=== PATIENT | female | born 1975 | race Caucasian/White ===

== ENCOUNTER → 2016-08-11 | Outpatient (REF) | payer BC | LOC: M LAB REF 12:34 | PROVIDERS: ATTEND Internal Medicine | DX: R20.1 Hypoesthesia of skin (principal) ==

== ENCOUNTER 2016-09-08 08:03 | Outpatient (CLI) | payer BC ==
[~2016-09-08] VITALS: Ht 160 cm; Wt 51.4 kg
[2016-09-08] MEDS ORDERED: methylPREDNISolone 1,000 MG, VIAL MATE ADAPTER 1 EACH in D5W 250 ML IV ONE (08:15)
[2016-09-08] MEDS ORDERED: PROBCAP4 PO (11:21)
== END 2016-09-08 10:50 | disposition home or self-care (01) ==
LOC: M INFU 08:03
PROVIDERS: ATTEND Psychiatry & Neurology Neurology
DX: H46.9 Unspecified optic neuritis (principal)
CPT/HCPCS: 96365; 96366; J2930

== ENCOUNTER 2016-09-09 06:54 | Outpatient (CLI) | payer BC ==
[~2016-09-09] VITALS: Ht 160 cm; Wt 51.4 kg
[~2016-09-09 06:54] MED LIST: PROBCAP4 PO; methylPREDNISolone 1,000 MG, VIAL MATE ADAPTER 1 EACH in D5W 250 ML IV ONE
== END 2016-09-09 08:35 | disposition home or self-care (01) ==
LOC: M INFU 06:54
PROVIDERS: ATTEND Psychiatry & Neurology Neurology
DX: H46.9 Unspecified optic neuritis (principal); M62.81 Muscle weakness (generalized); Z88.2 Allergy status to sulfonamides; Z79.899 Other long term (current) drug therapy
CPT/HCPCS: 96365; J2930

== ENCOUNTER 2016-09-10 07:09 | Outpatient (CLI) | payer BC ==
[~2016-09-10 07:09] MED LIST changes: -methylPREDNISolone 1,000 MG, VIAL MATE ADAPTER 1 EACH in D5W 250 ML IV ONE
[2016-09-10] MEDS ORDERED: methylPREDNISolone 1,000 MG, VIAL MATE ADAPTER 1 EACH in D5W 250 ML IV ONE (08:00)
== END 2016-09-10 08:30 | disposition home or self-care (01) ==
LOC: M INFU 07:09
PROVIDERS: ATTEND Psychiatry & Neurology Neurology
DX: H46.9 Unspecified optic neuritis (principal); M62.81 Muscle weakness (generalized); Z88.2 Allergy status to sulfonamides; Z79.899 Other long term (current) drug therapy
CPT/HCPCS: 96365; J2930

== ENCOUNTER 2016-09-11 07:02 | Outpatient (CLI) | payer BC ==
[~2016-09-11] VITALS: Ht 160 cm; Wt 51.4 kg
[~2016-09-11 07:02] MED LIST changes: +methylPREDNISolone 1,000 MG, VIAL MATE ADAPTER 1 EACH in D5W 250 ML IV ONE
== END 2016-09-11 08:25 | disposition home or self-care (01) ==
LOC: M INFU 07:02
PROVIDERS: ATTEND Psychiatry & Neurology Neurology
DX: H46.9 Unspecified optic neuritis (principal); M62.81 Muscle weakness (generalized); Z88.2 Allergy status to sulfonamides; Z79.899 Other long term (current) drug therapy
CPT/HCPCS: 96365; J2930

== ENCOUNTER 2016-09-12 06:58 | Outpatient (CLI) | payer BC ==
[~2016-09-12] VITALS: Ht 160 cm; Wt 51.4 kg
[~2016-09-12 06:58] MED LIST changes: -methylPREDNISolone 1,000 MG, VIAL MATE ADAPTER 1 EACH in D5W 250 ML IV ONE
[2016-09-12] MEDS ORDERED: methylPREDNISolone 1,000 MG, VIAL MATE ADAPTER 1 EACH in D5W 250 ML IV ONE (07:15)
== END 2016-09-12 08:25 | disposition home or self-care (01) ==
LOC: M INFU 06:58
PROVIDERS: ATTEND Psychiatry & Neurology Neurology
DX: H46.9 Unspecified optic neuritis (principal); M62.81 Muscle weakness (generalized); Z88.2 Allergy status to sulfonamides; Z79.899 Other long term (current) drug therapy
CPT/HCPCS: 96365; J2930

== ENCOUNTER → 2017-08-17 | Outpatient (REF) | payer BC | LOC: M LAB REF 12:38 | DX: N39.0 Urinary tract infection, site not specified (principal); N76.0 Acute vaginitis | CPT/HCPCS: 87186 ==

== ENCOUNTER → 2018-09-08 | Outpatient (REF) | payer BC ==
[2018-09-08 17:28] LABS: FOLLICLE STIMULATING HORMONE 7.3 mIU/mL; LUTEINIZING HORMONE 5.6 mIU/mL
== END ==
LOC: M LAB REF 16:33
PROVIDERS: ATTEND Internal Medicine
DX: N92.6 Irregular menstruation, unspecified (principal)

== ENCOUNTER → 2018-10-26 | Outpatient (CLI) | payer BC ==
[2018-10-26 10:13] LABS: BASO % 0.8 % (0.0-1.0); EOS # 0.1 10^3/uL (0.0-0.50); EOS % 2.3 % (0.0-3.0); HEMATOCRIT 37.9 % (36.0-47.0); HEMOGLOBIN 12.9 g/dl (12.0-15.5); LYMPH # 1.2 10^3/uL (1.5-4.5); LYMPH % 30.4 % (24.0-44.0); MEAN CORPUSCULAR HEMOGLOBIN 33.7 pg (27.0-33.0); MONO # 0.3 10^3/uL (0.0-0.8); MONO % 8.3 % (0.0-5.0); NEUTROPHILS # 2.2 10^3/uL (1.8-7.7); NEUTROPHILS % 58.2 % (36.0-66.0); PLATELET COUNT, AUTOMATED 166 10^3/uL (150-450); RED BLOOD COUNT 3.83 10^6/uL (4.00-5.40); WHITE BLOOD COUNT 3.9 10^3/uL (4.0-10.0)
[2018-10-26 10:20] LABS: INR 1.04; PROTHROMBIN TIME 13.3 SECONDS (11.8-14.0)
[2018-10-26 10:21] LABS: PARTIAL THROMBOPLASTIN TIME 25.1 SECONDS (25.0-38.4)
[2018-10-26 10:25] LABS: BLOOD UREA NITROGEN 11 MG/DL (7-18); CALCIUM LEVEL 8.8 MG/DL (8.5-10.1); CARBON DIOXIDE LEVEL 27 MEQ/L (21-32); CHLORIDE LEVEL 109 MEQ/L (98-107); CHOLESTEROL LEVEL 159 MG/DL (<200); CHOLESTEROL RISK RATIO 1.962 (<5); CREATININE FOR GFR 0.82 MG/DL (0.55-1.30); FOLLICLE STIMULATING HORMONE 3.8 mIU/mL; GLOMERULAR FILTRATION RATE > 60.0 (>58); GLUCOSE, FASTING 84 MG/DL (70-100); HCG, SERUM QUANTITATIVE < 1.0 MIU/ML; HDL CHOLESTEROL 81 MG/DL (>40); LDL CHOLESTEROL 66 MG/DL (<100); LUTEINIZING HORMONE 6.1 mIU/mL; NON-HDL-C 78 MG/DL; POTASSIUM SERUM 3.9 MEQ/L (3.5-5.1); PROLACTIN 28.3 NG/ML; SODIUM LEVEL 141 MEQ/L (136-145); TRIGLYCERIDES LEVEL 61 MG/DL (<150); URIC ACID 3.9 MG/DL (2.6-6.0)
[2018-10-26 10:49] LABS: HEMOGLOBIN A1c 5.5 %
[2018-10-29 00:06] LABS: 17 HYDROXY PROGESTERONE 83 ng/dL (.); DEHYDROEPIANDROSTERONE SULFATE 208.3 ug/dL (57.3-279.2); FACTOR 8 RISTOCETIN COFACTOR 85 % (50-200); INSULIN LEVEL 2.9 uIU/mL (2.6-24.9); TESTOSTERONE FREE (DIRECT) 2.6 pg/mL (0.0-4.2)
== END ==
LOC: M WUC 08:29
PROVIDERS: ATTEND Obstetrics & Gynecology
DX: D39.11 Neoplasm of uncertain behavior of right ovary (principal); N92.5 Other specified irregular menstruation

== ENCOUNTER → 2020-12-31 | Outpatient (REF) | payer BC, OTHER | LOC: M LAB REF 19:12 | PROVIDERS: ATTEND Physician Assistant | DX: D23.62 Other benign neoplasm of skin of left upper limb, including shoulder (principal) ==

== ENCOUNTER 2023-01-07 07:32 | Day surgery (SDC) | payer OTHER ==
[~2023-01-07] VITALS: Ht 160 cm; Wt 55.3 kg
[~2023-01-07 07:32] MED LIST changes: +MAGN200T PO; +NS 1,000 ML IV ONE
[2023-01-07] MEDS ORDERED: propofoL 500 MG/50 ML VIAL As Ordered ONE (08:38)
[2023-01-07] MEDS ORDERED: fentaNYL 100 MCG/2 ML INJECTION As Ordered ONE (08:38)
[2023-01-07] MEDS ORDERED: LIDOCAINE 2% 100MG/5ML SDV (FOR ANES.) As Ordered ONE (08:38)
[2023-01-07 09:20] VITALS: TEMP 98.2
[2023-01-07 09:40] VITALS: BP 112/71; O2SAT 100
== END 2023-01-07 09:50 | disposition home or self-care (01) ==
LOC: M OPP 07:32
PROVIDERS: ATTEND Surgery
DX: K63.5 Polyp of colon (principal); K31.89 Other diseases of stomach and duodenum; K30 Functional dyspepsia; Z79.1 Long term (current) use of non-steroidal anti-inflammatories (NSAID); Z88.2 Allergy status to sulfonamides
CPT/HCPCS: 43239; 45380; 45385; 88305; J3010

== ENCOUNTER → 2023-09-03 | Outpatient (REF) | payer OTHER ==
[~2023-09-03] MED LIST changes: -NS 1,000 ML IV ONE
[2023-09-03 14:55] LABS: LUTEINIZING HORMONE 18.2 mIU/ML
[2023-09-03 14:56] LABS: FOLLICLE STIMULATING HORMONE 6.4 mIU/ML
== END ==
LOC: M LAB REF 13:15
PROVIDERS: ATTEND Internal Medicine
DX: N95.9 Unspecified menopausal and perimenopausal disorder (principal)